=== PATIENT | female | born 1985 | race American Indian/Alaskan Native ===

== ENCOUNTER 2020-03-21 08:55 | Emergency (ER) | payer OTHER ==
--- NOTE | 2020-03-21 09:32 | Event Note ---
ED Screening Note Date of service: 03/21/20 Time: 09:25 ED Screening Note: 35-year-old -[place] female comes in with multiple complaints first 1 is she has pain in her left buttocks and left thigh for 2 days. She reports that the pain is worse with standing but denies any injury. The second complaint is she has lower abdominal pain that is sharp and is intermittent. She third complaint is she complains of rectal pain. For thing she complains of his bilateral hand and bilateral feet that feels numb at times. This initial assessment/diagnostic orders/clinical plan/treatment(s) is/are subject to change based on patients health status, clinical progression and re- assessment by fellow clinical providers in the ED. Further treatment and workup at subsequent clinical providers discretion. Patient/guardian urged not to elope from the ED as their condition may be serious if not clinically assessed and managed. Initial orders include: Patient is given a urine cup for urinalysis urine test and hCG.
[2020-03-21 10:09] LABS: Bacteria,Urine 1+ /HPF (Negative); Bilirubin,Urine NEG (Negative); Blood,Urine SM (Negative); Color,Urine Yellow (Yellow); Mucus,Urine FEW /HPF; Protein,Urine <15 mg/dL mg/dL (Negative); Urobilinogen,Urine < 2.0 mg/dL (<2.0)
[2020-03-21 10:10] LABS: HCG Qualitative,Urine Negative (Negative)
--- NOTE | 2020-03-21 11:54 | Emergency Department Report ---
ED Abdominal Pain HPI - General Chief Complaint: Extremity Injury, Upper Stated Complaint: RECTAL PAINS Time Seen by Provider: 03/21/20 11:41 Source: patient Mode of arrival: Ambulatory Limitations: No Limitations - History of Present Illness Initial Comments: Patient is a 35-year-old F [place] female with no significant past medical history who is complaining of lower abdominal pressure. States pressure is been present for approximately 2 days. She does also has some rectal pain and some radiation of pain into the upper thighs. She denies any injury. States there is been no nausea vomiting. Patient does state that she feels constipated and has to strain to have bowel movements. When she straining this is when her rectal pain worsens. Patient denies fevers chills cough cold congestion at this time. - Related Data Previous Rx's Medication Instructions Recorded Last Taken Type Dicyclomine [Bentyl] 20 mg PO QID #10 tablet 03/21/20 Unknown Rx Docusate Sodium [Colace] 100 mg PO BID #30 capsule 03/21/20 Unknown Rx Ibuprofen [Motrin 600 MG tab] 600 mg PO Q8H PRN #20 tablet 03/21/20 Unknown Rx Nitrofurantoin Dooly/M-Cryst 100 mg PO Q12HR #6 capsule 03/21/20 Unknown Rx [Macrobid CAP] ED Review of Systems ROS: Stated complaint: RECTAL PAINS Other details as noted in HPI Comment: All other systems reviewed and negative ED Past Medical Hx - Past Medical History Previous Medical History?: No - Surgical History Past Surgical History?: No - Social History Smoking Status: Never Smoker Substance Use Type: None - Medications Home Medications: Home Medications Medication Instructions Recorded Confirmed Last Taken Type Dicyclomine [Bentyl] 20 mg PO QID #10 tablet 03/21/20 Unknown Rx Docusate Sodium [Colace] 100 mg PO BID #30 capsule 03/21/20 Unknown Rx Ibuprofen [Motrin 600 MG tab] 600 mg PO Q8H PRN #20 tablet 03/21/20 Unknown Rx Nitrofurantoin Dooly/M-Cryst 100 mg PO Q12HR #6 capsule 03/21/20 Unknown Rx [Macrobid CAP] ED Physical Exam - General Limitations: No Limitations General appearance: alert, in no apparent distress - Head Head exam: Present: atraumatic, normocephalic - Eye Eye exam: Present: normal appearance - ENT ENT exam: Present: mucous membranes moist - Neck Neck exam: Present: normal inspection - Respiratory Respiratory exam: Present: normal lung sounds bilaterally. Absent: respiratory distress, wheezes, rales - Cardiovascular Cardiovascular Exam: Present: regular rate, normal rhythm. Absent: systolic murmur, diastolic murmur, rubs, gallop - GI/Abdominal GI/Abdominal exam: Present: soft, tenderness (Mild suprapubic tenderness), normal bowel sounds. Absent: distended, guarding, rebound, rigid - Extremities Exam Extremities exam: Present: normal inspection - Back Exam Back exam: Present: normal inspection - Neurological Exam Neurological exam: Present: alert, oriented X3 - Psychiatric Psychiatric exam: Present: normal affect, normal mood - Skin Skin exam: Present: warm, dry, intact, normal color. Absent: rash ED Course Vital Signs 03/21/20 03/21/20 09:18 11:44 Temperature 99.3 F Pulse Rate 77 Respiratory 20 18 Rate Blood Pressure 151/89 O2 Sat by Pulse 100 Oximetry ED Medical Decision Making - Lab Data Lab Results 03/21/20 Range/Units 09:41 Urine Color Yellow (Yellow) Urine Turbidity Slightly-cloudy (Clear) Urine pH 5.0 (5.0-7.0) Ur Specific Johnson 1.020 (1.003-1.030) Urine Protein <15 mg/dl (Negative) mg/dL Urine Glucose (UA) Neg (Negative) mg/dL Urine Ketones Neg (Negative) mg/dL Urine Blood Sm (Negative) Urine Nitrite Neg (Negative) Urine Bilirubin Neg (Negative) Urine Urobilinogen < 2.0 (<2.0) mg/dL Ur Leukocyte Esterase Sm (Negative) Urine WBC (Auto) 5.0 (0.0-6.0) /HPF Urine RBC (Auto) 2.0 (0.0-6.0) /HPF U Epithel Cells (Auto) 5.0 (0-13.0) /HPF Urine Bacteria (Auto) 1+ (Negative) /HPF Urine Mucus Few /HPF Urine HCG, Qual Negative (Negative) - Radiology Data KUB shows increased stool burden. Some nonobstructive pattern. There is gas bubbles in the rectum. - Medical Decision Making Patient likely with some discomfort in the abdomen secondary to constipation. She states she has been straining to have bowel movements. KUB does confirm constipation. Patient placed on Colace as well as Bentyl for cramping. There is a small amount of leuk esterase in her urine and should be treated with 3 days of antibiotics for urinary tract infection. Patient stable for discharge. Critical care attestation.: If time is entered above; I have spent that time in minutes in the direct care of this critically ill patient, excluding procedure time. ED Disposition Clinical Impression: Constipation Qualifiers: Constipation type: slow transit constipation Qualified Code(s): K59.01 - Slow transit constipation Acute cystitis Qualifiers: Hematuria presence: without hematuria Qualified Code(s): N30.00 - Acute cystitis without hematuria Disposition: DC- TO HOME OR SELFCARE Is pt being admited?: No Does the pt Need Aspirin: No Condition: Stable Instructions: Constipation, Adult, Urinary Tract Infection, Adult, Probiotics Referrals: CLAUDETTE CHARLTON MD [Referring] - 3-5 Days Time of Disposition: 11:54
[2020-03-21 12:02] VITALS: BP 125/78
--- NOTE | 2020-03-21 12:38 | XRay Report ---
ABDOMEN, SINGLE VIEW INDICATION / CLINICAL INFORMATION: constipation. COMPARISON: None available. FINDINGS: Moderate amount retained stool is present throughout the colon in a pattern suggesting constipation. No significant fecal impaction is noted within the rectal area. The remainder of the bowel gas pattern is normal. No abnormal calcifications noted. IMPRESSION: Moderate amount retained stool most likely related to constipation. Please correlate clin ically. Signer Name: Kyara Hadley MD Signed: 03/21/2020 12:34 PM Workstation Name: [id number]
== END 2020-03-21 12:01 | disposition home or self-care (01) ==
LOC: ED 08:55
DX: N30.00 Acute cystitis without hematuria (principal); K59.00 Constipation, unspecified; Z79.899 Other long term (current) drug therapy
CPT/HCPCS: 74018; 81001; 81025